=== PATIENT | male | born 1975 | race Caucasian/White ===

== ENCOUNTER 2017-01-11 01:37 | Emergency (ER) | payer OTHER | END 2017-01-11 03:50 | LOC: ER 01:37 | DX: T44.7X1A Poisoning by beta-adrenoreceptor antagonists, accidental (unintentional), initial encounter (principal); R00.1 Bradycardia, unspecified; Z98.890 Other specified postprocedural states; Y99.8 Other external cause status | CPT/HCPCS: 36415 ==